=== PATIENT | male | born 1985 | race Two or more races ===

== ENCOUNTER 2021-03-07 19:58 | Emergency (ER) | payer SELFPAY ==
[~2021-03-07] VITALS: Ht 167.6 cm; Wt 72.6 kg
[2021-03-07 20:37] VITALS: BP 116/54
== END 2021-03-08 09:19 | disposition left against medical advice (07) ==
LOC: EDBD 19:58 → ER 20:03
DX: F10.129 Alcohol abuse with intoxication, unspecified (principal); R11.0 Nausea; Y90.9 Presence of alcohol in blood, level not specified
CPT/HCPCS: 93005